=== PATIENT | male | born 1965 | race Caucasian/White ===

== ENCOUNTER 2016-10-29 09:35 | Emergency (ER) | payer OTHER ==
[~2016-10-29] VITALS: Ht 175.3 cm; Wt 122.5 kg
--- NOTE | ~2016-10-29 | EKG ---
PATIENT: CARINE LUND UNIT #: [id number] Ventricular Rate: 126 BPM Atrial Rate: 126 BPM P-R Interval: 134 ms QRS Duration: 80 ms Q-T Interval: 298 ms QTC Calculation(Bezet): 431 ms P [place]: 56 degrees Calculated R [place]: 60 degrees Calculated T [place]: 22 degrees Diagnosis Line: Sinus tachycardia Diagnosis Line: Borderline ECG Diagnosis Line: No previous ECGs available Diagnosis Line: Confirmed by ELMO SAN MD ([id number]) on 10/29/2016 Diagnosis Line: 11:13:28 PM INTERPRETING MD: MENA ALVAREZ
--- NOTE | ~2016-10-29 | EKG ---
PATIENT: CARINE LUND UNIT #: [id number] Ventricular Rate: 81 BPM Atrial Rate: 81 BPM P-R Interval: 132 ms QRS Duration: 86 ms Q-T Interval: 372 ms QTC Calculation(Bezet): 432 ms P [place]: 37 degrees Calculated R [place]: 32 degrees Calculated T [place]: 0 degrees Diagnosis Line: Normal sinus rhythm Diagnosis Line: Normal ECG Diagnosis Line: When compared with ECG of 29-OCT-2016 09:37, Diagnosis Line: (unconfirmed) Diagnosis Line: Vent. rate has decreased BY 45 BPM Diagnosis Line: Inverted T waves have replaced nonspecific T wave Diagnosis Line: abnormality in Inferior leads Diagnosis Line: Confirmed by ELMO SAN MD ([id number]) on 10/29/2016 Diagnosis Line: 11:13:44 PM INTERPRETING MD: MENA ALVAREZ
--- NOTE | ~2016-10-29 | CR72 ---
[facility] A Service of [facility] & [facility] RADIOLOGY TEXT RESULTS PATIENT: CARINE LUND LOCATION: [facility] : [birth year] UNIT #: [id number] AGE: [address]: Vishal Danielle MD SEX: M ORDER DR: [id number] [facility] [address] [place], [place] [address] [id number] MR#: [id number] Acc #: [id number] NAME: CARINE LUND. : 1965 SEX: M STUDY DATE/TIME: UNIT: [facility] ROOM: STUDY DESCRIPTION: CR Chest Single View Portable Attending Physician: Vishal Danielle M.D. Ordering Physician: Vishal Danielle M.D. Primary Care Physician: Primary Care Physician No MEDICAL IMAGING REPORT This report is preliminary unless electronic signature is present EXAM Chest portable 10/29/2016 0948 hours HISTORY 51-year-old man complaining of chest pain in the center of chest today COMPARISON None FINDINGS 2 portable upright views were performed to include both costophrenic sulci. The cardiac, mediastinal and hilar contours are normal. Lungs are hyperinflated but clear. No effusions. IMPRESSION Pulmonary hyperinflation with no acute cardiopulmonary findings. Dictated by... Milla Cruz M.D. THIS IS AN ELECTRONICALLY VERIFIED REPORT Milla Cruz M.D. at 10/29/2016 8:26 PM Gilbert/wale TD: 10/29/2016 14:37 JOB #: [id number] MEDICAL IMAGING REPORT Page 1 of 1 COPY
[2016-10-29 10:00] LABS: BASOPHIL# 0.1 X10e3 (0-0.3); BASOPHIL% 0.6 % (0-2.5); EOSINOPHIL# 0.2 X10e3 (0-0.7); EOSINOPHIL% 1.3 % (0.0-7.0); HEMATOCRIT 46.2 % (38.0-50.0); HEMOGLOBIN 15.3 gm/dL (13.0-16.0); LYMPHOCYTE# 4.5 X10e3 (1.0-3.5); MEAN CELL VOLUME 87.2 FL (83-96); MEAN CORPUSCULAR HEMOGLOBIN 28.9 PG (28-34); MEAN CORPUSCULAR HGB CONC 33.2 g/dL (30-36); MEAN PLATELET VOLUME 7.2 FL (6.5-11.5); MONOCYTE# 1.6 X10e3 (0-1.0); MONOCYTE% 10.3 % (3.0-12.0); NEUTROPHIL# 9.2 X10e3 (1.5-7.1); NEUTROPHIL% 58.8 % (40-75); PLATELET COUNT 317 X10e3 (140-420); RED CELL DISTRIBUTION WIDTH 14.1 % (11.0-15.5); WHITE BLOOD COUNT 15.6 X10e3 (4.0-10.5)
[2016-10-29 10:01] LABS: DIFF IND YES
[2016-10-29 10:12] LABS: POC - CKMB 1.7 ng/mL (0.0-7.9); POC - TROPONIN <0.05 ng/mL (<=0.05)
[2016-10-29 10:12] LABS: INR 0.9; PARTIAL THROMBOPLASTIN TIME 22.9 SECONDS (23.5-31.3)
[2016-10-29 10:24] LABS: ALBUMIN SERUM 4.4 g/dL (3.5-5.0); BILIRUBIN, DIRECT 0.1 mg/dL (0.0-0.2); BILIRUBIN,INDIRECT 0.3 mg/dL (0.0-0.9); BILIRUBIN,TOTAL 0.4 mg/dL (0.2-2.0); CALCIUM SERUM 9.1 mg/dL (8.4-10.2); POTASSIUM 3.4 mmol/L (3.5-5.1); PROTEIN TOTAL SERUM 7.5 g/dL (6.0-8.3)
[2016-10-29 10:36] LABS: ANISOCYTOSIS SL; PLATELET ESTIMATE NORMAL (NORMAL)
[2016-10-29 11:46] LABS: POC - CKMB 1.5 ng/mL (0.0-7.9); POC - TROPONIN <0.05 ng/mL (<=0.05)
[2016-10-29 14:23] LABS: POC - CKMB 1.3 ng/mL (0.0-7.9); POC - TROPONIN <0.05 ng/mL (<=0.05)
== END 2016-10-29 14:57 | disposition home or self-care (01) ==
LOC: CED 09:35
PROVIDERS: Emergency Medicine
DX: F41.9 Anxiety disorder, unspecified (principal); R07.89 Other chest pain; I10 Essential (primary) hypertension; E78.5 Hyperlipidemia, unspecified; Z98.890 Other specified postprocedural states
CPT/HCPCS: 36415; 71010; 80048; 80076; 82553; 83880; 84484; 85025; 85379; 85610; 85730; 93005; 96374; 99285; J2060